=== PATIENT | male | born 1970 | race Caucasian/White ===

== ENCOUNTER 2023-03-06 09:34 | Outpatient (CLI) | payer OTHER | END 2023-03-06 09:35 | disposition home or self-care (01) | LOC: SCSRAD 09:34 | PROVIDERS: ATTEND Surgery | DX: S62.502A Fracture of unspecified phalanx of left thumb, initial encounter for closed fracture (principal) ==

== ENCOUNTER 2023-03-27 14:07 | Outpatient (CLI) | payer OTHER | END 2023-03-27 14:08 | disposition home or self-care (01) | LOC: SCSRAD 14:07 | PROVIDERS: ATTEND Surgery | DX: S62.522A Displaced fracture of distal phalanx of left thumb, initial encounter for closed fracture (principal) ==

== ENCOUNTER 2023-04-19 22:59 | Inpatient (IN) | payer SELFPAY ==
[2023-04-19] MEDS ORDERED: Acetaminophen 500 MG TAB ONE (23:18)
[2023-04-20] MEDS ORDERED: niCARdipine 25 MG/10 ML SDV ONE (00:39)
[2023-04-20] MEDS ORDERED: Ipratropium/Albuterol 3 ML NEB NEB PRN (00:56)
[2023-04-20] MEDS ORDERED: hydrALAZINE 20 MG/ML VIAL SLOW IVP PRN (00:56)
[2023-04-20] MEDS ORDERED: Dextrose 5% in Water 1,000 ML IV PRN (00:56)
[2023-04-20] MEDS ORDERED: traMADol HCl 50 MG TAB PO PRN (00:56)
[2023-04-20] MEDS ORDERED: TETANUS, DIPHTHERIA TOX,ADULT (TDVAX) 0.5 ML VIAL IM ONE (00:56)
[2023-04-20] MEDS ORDERED: Glucagon 1 MG/ML KIT IM PRN (00:56)
[2023-04-20] MEDS ORDERED: Dextrose 50% Abboject 50 ML SYRINGE SLOW IVP PRN (00:56)
[2023-04-20] MEDS ORDERED: Ondansetron PF 4 MG/2 ML Vial IVP PRN (00:56)
[2023-04-20] MEDS ORDERED: Morphine 2 MG/ML VIAL SLOW IVP PRN (00:56)
[2023-04-20] MEDS ORDERED: TETANUS AND DIPHTHERIA TOX/PF 0.5 ML DISP.SYRIN IM SCH (01:30)
[2023-04-20] MEDS ORDERED: niCARdipine 40MG In NaCl 40 MG/200 ML BAG IVPB SCH (02:30)
[2023-04-20] MEDS ORDERED: niCARdipine 50 MG, Admixture Fee 1 EACH in Sodium Chloride 0.9% 250 ML 230 ML IV SCH (03:15)
[2023-04-20] MEDS ORDERED: Lactated Ringer's 1,000 ML IV SCH (03:30)
[2023-04-20 03:54] LABS: #Eosinphils 0.1 thou/uL (0.0-0.7); #Neutrophils 8.2 thou/uL (1.40-6.50); %Basophils 0.4 % (0.0-1.0); %Eosinophils 0.5 % (0.0-10.0); %Lymphocytes 15.8 % (21.0-51.0); %Monocytes 8.7 % (0.0-10.0); %Neutrophils 74.1 % (42.0-75.0); Mean Corpuscular HGB CONC 34.1 g/dL (32.0-36.0); Mean Corpuscular Hemoglobin 32.3 pg (27.0-31.0); Mean Corpuscular Volume 94.7 fl (78.0-98.0); Mean Platelet Volume 8.8 fL (7.4-10.4); Platelet Count 263 10x3/uL (130-400); RBC Distribution Width 12.2 % (11.5-14.5); Red Blood Cell (RBC) Count 5.27 mill/uL (4.70-6.10)
[2023-04-20 03:55] VITALS: BMI 28.9
[2023-04-20 04:07] LABS: INR-International Normal Ratio 0.9; PTT 25.2 sec (22.9-36.1); Prothrombin Time 12.9 sec (12.0-14.7)
[2023-04-20 04:22] LABS: ALT (SGPT) 39 U/L (8-55); AST (SGOT) 52 U/L (5-34); Albumin 4.3 g/dL (3.5-5.0); Alkaline Phosphatase 69 U/L (40-110); Anion Gap 14 mmol/L (10-20); BUN (Urea Nitrogen) 13 mg/dL (8.4-25.7); Bilirubin, Total 0.4 mg/dL (0.2-1.2); Calc. Creatinine Clearance 99 mL/min (70-130); Calcium 8.9 mg/dL (7.8-10.44); Carbon Dioxide 24 mmol/L (22-29); Chloride 106 mmol/L (98-107); Estimated GFR 78; Globulin 3.4 g/dL (2.4-3.5); Glucose 115 mg/dL (70-105); Potassium 3.9 mmol/L (3.5-5.1); Protein, Total 7.7 g/dL (6.0-8.3); Sodium 140 mmol/L (136-145)
[2023-04-20] MEDS ORDERED: Acetaminophen 325 MG TAB PO SCH (06:00)
[2023-04-20] MEDS ORDERED: Famotidine/PF 20 mg/2ml Vial SLOW IVP SCH (09:00)
[2023-04-20] MEDS ORDERED: Iopamidol-370 76% 500 ML MDV (1 ML CHARGE) ONE (09:48)
[2023-04-20] MEDS ORDERED: Magnevist 469MG/ML 20 ML VIAL ONE (10:17)
[2023-04-20] MEDS ORDERED: Cyclobenzaprine 10 MG TAB PO PRN (10:20)
[2023-04-20 11:39] VITALS: TEMP 98.6
== END 2023-04-20 11:50 | disposition home or self-care (01) | DRG 52 ==
LOC: ERS 22:59 → CCU 04-20 00:56
PROVIDERS: ADMIT Surgery; ATTEND Surgery
DX: S14.103A Unspecified injury at C3 level of cervical spinal cord, initial encounter (principal); N17.9 Acute kidney failure, unspecified; F12.929 Cannabis use, unspecified with intoxication, unspecified; I15.9 Secondary hypertension, unspecified; Z88.2 Allergy status to sulfonamides; Z98.890 Other specified postprocedural states
CPT/HCPCS: 36415; 70496; 70498; 72156; 80053; 85025; 85610; 85730; 96365; A9579; G0390; J7120; Q9967; S0028